=== PATIENT | male | born 1935 | race Caucasian/White ===

== ENCOUNTER 2017-08-07 15:17 | Inpatient (IN) | payer MEDICARE ==
[2017-08-07] MEDS ORDERED: DUONEB 0.5-3 MG/3 ml Neb IH ONE (16:13)
[2017-08-07] MEDS: DUONEB 0.5-3 MG/3 ml Neb IH SCH ×3 (16:15→22:44)
[2017-08-07] MEDS ORDERED: XANAX 1 MG PO PRN (16:24)
[2017-08-07] MEDS ORDERED: solu-MEDROL 125 MG IV ONE (16:30)
[2017-08-07 16:48] LABS: Hemoglobin 15.8 gm/dl (12.5-18.0); Mean Cell Volume 85.1 fl (78-100); Mean Corpuscular Hgb Concent. 32.9 g/dl (32-36); Mean Platelet Volume 9.8 fl (6-9.5); Platelet Count 470 K/mm3 (150-450); Red Blood Count 5.64 M/mm3 (4.1-5.6); Red Cell Distribution Width 14.8 % (11.5-14.0); White Blood Count 10.6 K/mm3 (4.0-10.5)
[2017-08-07] MEDS: Lactated Ringers 1,000 ML IV SCH (16:50)
[2017-08-07] MEDS: ROCEPHIN 1 Gm-D5w 50 ml Bag** 1 G/50 ML IVPB IV SCH (16:50)
--- NOTE | 2017-08-07 17:02 | XRAY ---
Indication: Hypoxia. COPD. Comparison: April 21, 2015. PA/lateral chest again hyperinflated with a few tiny calcified granulomas. New left upper lobe pneumonic infiltrate without large effusion. Heart is not enlarged. Bony thorax intact again with mild osteopenia, minimal degenerative changes, and old left rib fractures. Impression: New left upper lobe infiltrate.
[2017-08-07 17:12] LABS: ALBUMIN 2.5 g/dL (3.4-5.0); ALKALINE PHOSPHATASE 81 U/L (46-116); BLOOD UREA NITROGEN 10 mg/dL (9-20); CHLORIDE 100 mEq/L (98-107); Calcium 9.1 mg/dL (8.5-10.1); Carbon Dioxide 30.4 mEq/L (21-32); Creatinine 1 1.01 mg/dl (0.55-1.30); Glucose 112 MG/DL (70-110); Potassium 4.4 mEq/L (3.5-5.1); SGOT/AST 14 U/L (15-37); SGPT/ALT 10 U/L (12-78); SODIUM 140 mEq/L (136-145)
[2017-08-07] MEDS: Zithromax 500 MG/ 250 ML NaCl Premix 500 MG/250 ML IVPB IV SCH (17:43)
[2017-08-07] MEDS ORDERED: THIAMINE 200 MG/2 ML IV ONE (17:45)
[2017-08-07 18:25] LABS: Basophil 1 % (0.0-1.0); Lymphocytes 8 % (24-44); Monocyte 6 % (0.0-12.0); Neutrophils 85 % (36.-66.); Total Cells Counted 100
[2017-08-07 18:26] LABS: Platelet Estimate INCREASED (NORMAL)
[2017-08-07] MEDS ORDERED: Seroquel 25 MG PO SCH (22:00)
[2017-08-07 22:08] LABS: Appearance CLEAR (CLEAR); Bilirubin NEGATIVE (NEGATIVE); Blood TRACE NON-HEM Ery/ul (0-5); Glucose NEGATIVE (NEGATIVE); Ketones SMALL (NEGATIVE); Leukocyte Esterase 1+ (NEGATIVE); Nitrite NEGATIVE (NEGATIVE); Protein,Urine Dip TRACE (Negative); Urobilinogen NORMAL mg/dL (0-1)
[2017-08-07 22:09] LABS: Bacteria MODERATE /HPF (NEGATIVE); Epithelial Cells MODERATE /HPF (FEW); Hyaline Casts 0-2 /LPF (0-2); Mucus MODERATE /HPF (NEGATIVE)
[2017-08-08] MEDS: DUONEB 0.5-3 MG/3 ml Neb IH SCH ×5 (02:32→19:21)
[2017-08-08] MEDS: Lactated Ringers 1,000 ML IV SCH (03:09)
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
[2017-08-08] MEDS ORDERED: xanAX 0.5 MG PO PRN ×2 (08:30→19:55)
[2017-08-08] MEDS: ENOXAPARIN SODIUM SQ SCH (12:02)
[2017-08-08] MEDS: ROCEPHIN 1 Gm-D5w 50 ml Bag** 1 G/50 ML IVPB IV SCH (12:02)
--- NOTE | 2017-08-08 12:30 | XRAY ---
Exam: CT of the chest with IV contrast from 08/08/2017. CTDI: 15.81 Comparison: Two-view chest series from 08/07/[address] of the chest without IV contrast from 12/11/2015. 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 Shortness of breath. Technique: Post-IV contrast axial images were obtained through the chest during automated injection of 80 cc of Isovue-370 IV contrast material. Reconstructed coronal and sagittal images were created and reviewed. Findings: The heart size is normal without pericardial effusion. Some coronary artery vascular calcification is seen. Some small granulomatous calcifications are seen just anterior to the karen and proximal right mainstem bronchus, the right hilum, and the right side of the subcarinal region. More importantly, there is a new large consolidation occupying the left upper lobe anteriorly. I believe much of this is due to left upper lobe atelectasis, although obvious infiltrate is seen inferior to this within the lingula anteriorly. On coronal image #46, there is noted to be an irregular left suprahilar soft tissue masslike density measuring 3.0 cm x 2.3 cm in maximum cross-section. I wonder if this represents the same mass as that seen on the CT study from 12/11/2015. In any event, a central left suprahilar mass causing left upper lobe atelectasis and postobstructive pneumonia within the lingula is strongly suggested by this appearance. The abnormal soft tissue density extends to the anterior margin of the left hilum. Also, there is a new prominent lymph node seen on axial image #22 just to the left of the karen measuring 3.1 cm x 1.8 cm which likely represents a metastatic mediastinal lymph node. The soft tissue mass appears to encase the left upper lobe bronchus on images #25 and #26. In addition, there is a new subpleural noncalcified soft tissue nodule at the posterior aspect of the superior segment of the left lower lobe measuring about 8 mm in diameter. See axial image #15. There is also a suggestion of a smaller 5.6 mm subpleural soft tissue nodule just superior to this on axial image #12. The remainder of the left lung is remarkable for minimal posterior pleural reaction/thickening at the left lung base. Findings consistent with centrilobular emphysema are again noted. The right lung is remarkable for some minimal curvilinear scarring/linear atelectasis within the right lower lobe. I also note some focal pleural thickening/minimal atelectasis at the posterior right lung base. No free flowing pleural effusion is seen on the right. A couple tiny nodular densities are seen laterally within the right lower lung field on axial image #35 which I do not believe are significantly changed from 12/11/2015. Scant subpleural linear scarring/atelectasis is noted at the posterior medial right upper lung field on axial image #19. No soft tissue mass or infiltrate is seen within the right lung. Within the upper abdomen, the visualized adrenal glands appear unremarkable, although the lower margin of the adrenal glands were cut off. No other acute process is seen within the visualized upper abdomen. The skeleton reveals deformity from an old healed fracture of the medial aspect of the left clavicle. There are several bilateral healed rib fracture deformities. A portion of the prior moderate fracture deformity of the upper aspect of the T12 vertebral body is again seen. I note new minimal loss of the anterior vertebral body height of T6 as compared to 12/11/2015. No obvious osteolytic or osteoblastic bone destruction is noted. Some thoracic vertebral endplate spurring is seen. Impression: 1. I suspect a central left suprahilar mass causing significant peripheral left upper lobe atelectasis as well as postobstructive lingular pneumonic infiltrate. There is a new enlarged lymph node to the left of the karen which probably represents a metastatic lymph node. Also, there appear to be a couple new subpleural noncalcified soft tissue nodules at the posterior aspect of the left upper lung field, probably within the superior segment of the left lower lobe. This may be due to metastatic disease. Pulmonary consult is recommended. 2. Centrilobular pulmonary emphysema. 3. There appears to be some minimal focal atelectasis/scarring at the posterior right lung base. I also note some minor posterior pleural thickening/scarring at the left lung base. No other acute findings are seen within the lungs. 4. Skeletal findings, as discussed above.
[2017-08-08] MEDS ORDERED: XANAX 1 MG ONE (19:52)
[2017-08-08] MEDS ORDERED: XANAX 1 MG PO PRN (19:56)
[2017-08-08] MEDS: Zithromax 500 MG/ 250 ML NaCl Premix 500 MG/250 ML IVPB IV SCH (22:20)
[2017-08-08] MEDS ORDERED: Seroquel 25 MG PO ONE (22:45)
[2017-08-09] MEDS: DUONEB 0.5-3 MG/3 ml Neb IH SCH ×5 (00:21→14:25)
[2017-08-09] MEDS: Lactated Ringers 1,000 ML IV SCH (10:04)
[2017-08-09] MEDS: ROCEPHIN 1 Gm-D5w 50 ml Bag** 1 G/50 ML IVPB IV SCH (10:44)
[2017-08-09] MEDS: ENOXAPARIN SODIUM SQ SCH (10:44)
[2017-08-09 12:07] VITALS: BP 111/71
--- NOTE | 2017-08-09 12:43 | PCM.DS ---
Discharge Summary Date of Admission: 08/07/17 15:28 Date of Discharge: 08/09/2017 Admitting Physician: BAM BOND Consults: Consults on Case 08/08/17 12:57 Consult Pulmonology ROUTINE Primary Care Provider: BAM BOND Allergies Allergies No Known Drug Allergies Allergy (Verified 08/07/17 17:08) Hospital Summary - Hospital Course Hospital Course: He presented to the office with shortness of breath and coughing and was very weak with difficulty making it to the exam room and found to have pulse ox of 86 % this improved to 90% with rest and he was found to have rhonchi and wheezing. He was sent for admission taken by his granddaughter and cxr showed left upper lobe infiltrate. CT then showed concern for an obstructing mass and a large lymph node with concern for metastatic node. He was initially on 4L nc O2 but weaned to room air. We are attempting to qualify him for home O2 with ambulation. He was treated with azithromycin and ceftriaxone and duonebs and feeling much better on this and really wants to go home. Had a family meeting with his son who lives near him and his daughter in law to discuss the lung mass and concern for cancer and next steps as well as concerns with his worsening health at home. HE does not feel he needs any help in the home right now and understands the findings and need for follow up. Kyaw and his son are not sure he will want treatment if it is cancer but would like to find out what it is that is causing this. Arrangments are made for follow up with Dr. Odom for consideration for possible diagnostic bronchoscopy. - Vitals & Intake/Output Vital Signs: Vital Signs Temperature 98.1 F 08/09/17 12:00 Pulse Rate 89 08/09/17 12:00 Respiratory Rate 18 08/09/17 12:00 Blood Pressure 111/71 08/09/17 12:00 O2 Sat by Pulse Oximetry 94 L 08/09/17 12:00 Oxygen-Last Documented O2 Percentage 2 Liters = 28% Intake & Output: Intake & Output 08/07/17 08/08/17 08/09/17 08/10/17 11:59 11:59 11:59 11:59 Intake Total 1719 1293 Output Total 300 300 Balance 1419 2003 Weight 60.5 kg - Lab Result Diagrams: 08/07/17 16:10 02/28/18 16:10 Micro Results-Entire Visit: Microbiology 08/07/17 16:25 Blood Culture - Preliminary Blood NO GROWTH TO DATE 08/07/17 16:10 Blood Culture - Preliminary Blood NO GROWTH TO DATE - Radiology Exams Ordered Rad Exams-Entire Visit: Radiology Procedures Category Date Time Status CHEST 2 VIEWS (PA AND LAT) Routine Exams 08/07/17 15:55 Completed CHEST WITH CONTRAST [CT] Routine Exams 08/08/17 08:21 Completed - Procedures and Test Procedures and Tests throughout Hospitalization: Therapy Orders & Screens 08/07/17 15:55 Respiratory Nebulizer Q4H Comment: Diagnosis: copd,hypoxia Name of medication?: duoneb 08/07/17 16:00 EKG ROUTINE Comment: Diagnosis: copd,hypoxia 08/07/17 16:11 Smoking Cessation Education ONCE Comment: Diagnosis: copd,hypoxia Smoking Status: Current every day smoker How long have you smoked: 65 YEARS Have you smoked in the past 12 months: Yes Approximately how many cigarettes per day: 1-1 1/2 PACK Do you dip or chew tobacco: No If,Former Smoker,when did you quit: 1MONTH 08/07/17 16:23 Oxygen NASAL CANNULA 3 lpm Comment: Diagnosis: copd,hypoxia 08/09/17 08:23 Qualify for Home Oxygen ROUTINE Comment: Diagnosis: copd,hypoxia Discharge Exam General Appearance: no apparent distress, alert Neurologic Exam: alert, oriented x 3, cooperative, normal mood/affect, nml cerebellar function, sensation nml, No motor deficits Skin Exam: normal color, warm, dry Eye Exam: PERRL, EOMI, eyes nml inspection Ears, Nose, Throat Exam: normal ENT inspection, pharynx normal, moist mucous membranes Neck Exam: normal inspection, non-tender, supple, full range of motion Respiratory Exam: rhonchi, No respiratory distress Cardiovascular Exam: regular rate/rhythm, normal heart sounds Gastrointestinal/Abdomen Exam: soft, No tenderness, No mass Extremity Exam: normal inspection, normal range of motion Back Exam: normal inspection, normal range of motion, No CVA tenderness, No vertebral tenderness Male Genitalia Exam: deferred Rectal Exam: deferred Final Diagnosis/Problem List - Final Discharge Diagnosis/Problem (1) Pneumonia Current Visit: Yes Status: Acute (2) COPD (chronic obstructive pulmonary disease) Current Visit: Yes Status: Acute (3) Acute respiratory failure with hypoxemia Current Visit: Yes Status: Acute (4) Dementia Current Visit: Yes Status: Chronic (5) Anxiety Current Visit: Yes Status: Chronic - Discharge Discharge Date: 08/09/17 Disposition: Home, Self-Care Condition: Stable Prescriptions: New Albuterol/Ipratropium 3ml Neb* [DUONEB 0.5-3 MG/3 ml Neb] 3 ml IH QID #120 ampul.neb Cefdinir [Omnicef] 300 mg PO BID #16 capsule Continue Alprazolam 1 mg [Xanax 1 mg] 1 mg PO QID Quetiapine Fumarate 25 mg [Seroquel 25 MG] 25 mg PO HS #30 tablet Discontinued Meloxicam 7.5 mg PO DAILY Additional Instructions: [place] [facility] [place] @ 10: 15 a.m. and patient is to bring insurance card,disk of cat scan, and current medication list. Follow up with: VALERIE ODOM [ACTIVE STAFF] - 08/29/17 10:15 am (med ist ins card and disc to [facility]) BAM BOND [Primary Care Provider] - 1 Week
[2017-08-09 14:27] VITALS: PULSE 92; O2SAT 96
== END 2017-08-09 15:30 | disposition home or self-care (01) | DRG 193 ==
LOC: MED SURG 15:28
PROVIDERS: ADMIT Family Medicine; ATTEND Family Medicine
DX: J18.9 Pneumonia, unspecified organism (principal); J96.01 Acute respiratory failure with hypoxia; J44.9 Chronic obstructive pulmonary disease, unspecified; F03.90 Unspecified dementia, unspecified severity, without behavioral disturbance, psychotic disturbance, mood disturbance, and anxiety; F41.9 Anxiety disorder, unspecified; R91.8 Other nonspecific abnormal finding of lung field; I25.2 Old myocardial infarction; M19.90 Unspecified osteoarthritis, unspecified site; F41.8 Other specified anxiety disorders; F17.200 Nicotine dependence, unspecified, uncomplicated
CPT/HCPCS: 36415; 71046; 71260; 80053; 81000; 83605; 85025; 87040; 93005; 94150; 94640; 94760; J0456; J0696; J1650; J2930; A9270-GY

== ENCOUNTER 2017-10-06 18:15 | Emergency (ER) | payer MEDICARE ==
[2017-10-06] MEDS ORDERED: Adacel Vial IM ONE ×2 (18:39→22:06)
[2017-10-06] MEDS ORDERED: Sodium Chloride 0.9% 1000 ML 1,000 ML IV SCH (18:45)
[2017-10-06 18:48] VITALS: O2SAT 93
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
[2017-10-06 19:01] LABS: BASOPHIL % 0.2 % (0.0-0.4); Basophil (Absolute #) 0.02 (0-0.4); Eosinophil % 0.7 % (0.00-5.0); Eosinophil (Absolute #) 0.06 (0-0.5); Granulocyte Absolute (ANC) 7.14 (1.4-6.9); Granulocytes % 79.1 % (36.0-66.0); Hematocrit 45.2 % (42-50); Hemoglobin 15.5 gm/dl (12.5-18.0); Lymphocyte (Absolute #) 1.13 (1.0-4.6); Lymphocytes % 12.5 % (24.0-44.0); Mean Cell Volume 77.8 fl (78-100); Mean Corpuscular Hgb Concent. 34.3 g/dl (32-36); Mean Platelet Volume 9.3 fl (6-9.5); Monocyte (Absolute #) 0.68 (0.0-1.3); Monocytes % 7.5 % (0.0-12.0); Platelet Count 342 K/mm3 (150-450); Red Blood Count 5.81 M/mm3 (4.1-5.6); Red Cell Distribution Width 14.9 % (11.5-14.0)
[2017-10-06 19:05] LABS: Mean Corpuscular Hemoglobin 26.6 pg (26-32)
[2017-10-06 19:12] LABS: INR 1.21 (0.8-3.0)
[2017-10-06 19:15] LABS: PTT 34.8 SECONDS (24.1-36.1)
[2017-10-06 19:21] LABS: ALKALINE PHOSPHATASE 107 U/L (38-126); ANION GAP 16.5 MEQ/L (5-15); BLOOD UREA NITROGEN 15 mg/dL (9-20); CHLORIDE 101 mmol/L (98-107); Calcium 9.6 mg/dL (8.4-10.2); Carbon Dioxide 23 mmol/L (22-30); Glucose 123 mg/dL (74-106); LIPASE 32 U/L (23-300); Potassium 3.9 mmol/L (3.5-5.1); SGOT/AST 24 U/L (17-59); SGPT/ALT 9 U/L (0-50); SODIUM 137 mmol/L (137-145); Total Protein 8.5 g/dL (6.3-8.2)
[2017-10-06 20:24] LABS: Appearance CLEAR (CLEAR); Bilirubin NEGATIVE (NEGATIVE); Blood TRACE NON-HEM Ery/ul (0-5); Glucose NEGATIVE (NEGATIVE); Ketones SMALL (NEGATIVE); Leukocyte Esterase NEGATIVE (NEGATIVE); Nitrite NEGATIVE (NEGATIVE); Protein,Urine Dip NEGATIVE (Negative); Urobilinogen NORMAL mg/dL (0-1)
[2017-10-06 20:25] LABS: Bacteria RARE /HPF (NEGATIVE); Epithelial Cells RARE /HPF (FEW)
[2017-10-06] MEDS ORDERED: ROCEPHIN 1 Gm-D5w 50 ml Bag** 1 G/50 ML IVPB IV STA (21:50)
[2017-10-06] MEDS ORDERED: Sodium Chloride 0.9% 1000 ML 0 ML ONE (22:02)
[2017-10-06] MEDS ORDERED: ROCEPHIN 1 Gm-D5w 50 ml Bag** 1 G/50 ML IVPB IV ONE (22:02)
[2017-10-06 22:28] VITALS: BP 144/75; PULSE 93
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
--- NOTE | 2017-10-09 08:17 | XRAY ---
Indication: Abdomen pain. Unable to urinate. Multiple contiguous axial images obtained through the abdomen and pelvis without contrast as ordered. Comparison: December 11, 2015. Lung bases and abdomen limited by respiration artifact. Minimal bibasilar dependent atelectasis. No infiltrate or effusion. Heart is not enlarged. Again small hiatal hernia. Noncontrasted stomach and bowel loops appear nonobstructed. Previous reported appendectomy. Urinary bladder is now markedly distended along with mild bilateral hydronephrosis and bilateral ureteral prominence. No calculus or perinephric fluid. Findings may represent neurogenic bladder versus outlet obstruction. No free fluid/air. Remaining liver, gallbladder, pancreas, spleen, and adrenal glands appear unremarkable for noncontrast exam. There remains moderate aortoiliac calcifications without AAA. Osseous structures again demonstrates osteopenia, remote bilateral rib fractures, remote multilevel thoracolumbar compression fractures, and bilateral hip degenerative changes. Impression: 1. Respiration artifact. 2. Markedly distended urinary bladder with mild hydronephrosis and minimal hydroureter concerning for neurogenic bladder versus outlet obstruction. 3. Stable small hiatal hernia, remote bilateral rib fractures, multilevel thoracolumbar compression fractures, and bilateral hip degenerative changes. Comment: Preliminary interpretation was made by [facility]. No critical discrepancy. CTDI 10.85
== END 2017-10-06 22:34 | disposition home or self-care (01) ==
LOC: ED 18:15
DX: S01.112A Laceration without foreign body of left eyelid and periocular area, initial encounter (principal); R33.9 Retention of urine, unspecified; R10.9 Unspecified abdominal pain; J02.9 Acute pharyngitis, unspecified; C34.90 Malignant neoplasm of unspecified part of unspecified bronchus or lung; Y04.0XXA Assault by unarmed brawl or fight, initial encounter; I45.10 Unspecified right bundle-branch block
CPT/HCPCS: 36000; 36415; 51702; 70450; 71045; 72125; 74176; 80053; 81000; 83690; 85025; 85610; 85730; 90471; 90715; 93005; 93041; 99284; J0696

== ENCOUNTER 2018-01-08 17:22 | Observation (INO) | payer MEDICARE ==
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
[2018-01-08 18:06] VITALS: PULSE 122; O2SAT 89
[2018-01-08 19:32] VITALS: BP 70/41
--- NOTE | 2018-01-24 18:03 | PCM.SSS ---
History of Present Illness - Chief Complaint Chief Complaint: Dying Date: 01/08/18 History of Present Illness: is a 82 year old male. the patient was seen in the emergency department. Medications & Allergies Home Medications: Home Medication List Alprazolam 1 mg [Xanax 1 mg] 1 mg PO QID 01/19/13 [History Confirmed 10/06] Cephalexin Monohydrate [Keflex] 500 mg PO TID #21 capsule 10/06/17 [Rx] Allergies/Adverse Reactions: Allergies Allergy/AdvReac Type Severity Reaction Status Date / Time No Known Drug Allergies Allergy Verified 01/08/18 18:06 - Past Medical History Past Medical History: Yes Neurological History: Dementia ENT History: No Pertinent History Cardiac History: Myocardial Infarction (MS) Respiratory History: COPD Endocrine Medical History: No Pertinent History Musculoskelatal History: Arthritis, Fractures GI Medical History: No Pertinent History History: No Pertinent History Pyscho-Social History: Anxiety, Depression Male Reproductive Disorders: No Pertinent History Comment: EMS THOUGHT PT HAD SOME DEMENTIA FROM HIS PAST MEDICAL HX - Past Surgical History Past Surgical History: Yes Neuro Surgical History: No Pertinent History Cardiac History: Angioplasty Respiratory Surgery: No Pertinent History GI Surgical History: Appendectomy Genitourinary Surgical Hx: No Pertinent History Musculskeletal Surgical Hx: Amputation Male Surgical History: No Pertinent History Other Surgical History: 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 - Social History Smoking Status: Current every day smoker How long have you smoked: 65 YEARS Exposure to second hand smoke: No Alcohol: None Drug Use: none Significant Family History: no pertinent family hx - Physical Exam General Appearance: other (He is tin male with irregular breathing fixed pupils no corneal reflex no response to pain no gag reflex. cool extremities with diminished peripheral pulses. his toes are upgoing bilateral heart is tachcyardia with mild rhonchi bilaterally his abdomen is soft and nondistended with no bowel sounds. no evidence of injury) Assessment/Plan (1) Lung cancer Status: Chronic Assessment & Plan: suspected diagnosis no biopsy was preformed due to his poor prognosis at time of presentation to the social worker health services Code(s): C34.90 - MALIGNANT NEOPLASM OF UNSP PART OF UNSP BRONCHUS OR LUNG (2) Dementia Status: Chronic Code(s): F03.90 - UNSPECIFIED DEMENTIA WITHOUT BEHAVIORAL DISTURBANCE Hospital Summary - Hospital Course Hospital Course: he had dementia and a lung mass suspected of lung cancer who he had evaluated by pulmonology and elect to not pursue treatment and has been on hospice at home. However earlier in the day he had acute decompensation. He has not been using his O2 at home but was eating and helping with his personal care and his family was helping him with minimal intervention from hospice. But this am he became unable to arouse abnormal breathing and the family called hospice as they were not able to provide the around the clock care he would need. Hospice tried to make arrangements for ECF admit for comfort measures and allow natural . [facility] a bed bug was identified on his cot and he was denied entry into the prison. His family didn't know where to take him and did not have any direction from hospice on what to do. They did not feel they could provide 24 hour care for him in his home as they all have to continue with their jobs. They had him brought to the ED. He was seen by Dr. Jacques and found to be in the active process of dying it appeared and appropriately per his wishes in previous documentation and his family does not want any intervention done just comfort measures. Hospice is not available. After discussion with his son and extended family members at bedside and after examination was consistent with brain , I agreed to admit him for comfort measures. The hospice field sales representative was reported as on her way to the hospital and we were trying to wait for them for the admission. Sometime between my exam in the ED and his arrival to the floor about 90 mins later he . He arrived to [facility] with no pulse or respirations and was never admitted to the hospital. His was anticipated and expected and he was in no discomfort on my exam in the ED. - Vitals & Intake/Output Vital Signs: Vital Signs Temperature 98.5 F 01/08/18 17:53 Pulse Rate 122 H 01/08/18 17:53 Respiratory Rate 22 01/08/18 17:53 Blood Pressure 70/41 01/08/18 19:26 O2 Sat by Pulse Oximetry 89 L 01/08/18 17:53 Oxygen-Last Documented O2 Percentage 2 Liters = 28% - Discharge Disposition: Condition: Prescriptions: No Action Alprazolam 1 mg [Xanax 1 mg] 1 mg PO QID Cephalexin Monohydrate [Keflex] 500 mg PO TID #21 capsule Follow up with: BAM BOND [Primary Care Provider] - 1 Week
== END 2018-01-08 20:11 | disposition expired ==
LOC: ED 17:22 → MED SURG 20:10
PROVIDERS: ADMIT Family Medicine; ATTEND Family Medicine
DX: C39.0 Malignant neoplasm of upper respiratory tract, part unspecified (principal); F03.90 Unspecified dementia, unspecified severity, without behavioral disturbance, psychotic disturbance, mood disturbance, and anxiety; Z51.5 Encounter for palliative care; R53.1 Weakness; J44.9 Chronic obstructive pulmonary disease, unspecified; F41.9 Anxiety disorder, unspecified; M19.90 Unspecified osteoarthritis, unspecified site; I25.2 Old myocardial infarction; F41.8 Other specified anxiety disorders; Z72.0 Tobacco use
CPT/HCPCS: 36000; 99285